=== PATIENT | female | born 1945 | race Two or more races ===

== ENCOUNTER 2021-06-10 10:26 | Outpatient (CLI) | payer OTHER | END 2021-06-10 10:31 | disposition home or self-care (01) | LOC: RAD 10:26 | PROVIDERS: ATTEND General Practice | DX: J44.9 Chronic obstructive pulmonary disease, unspecified (principal); D48.61 Neoplasm of uncertain behavior of right breast; D48.62 Neoplasm of uncertain behavior of left breast; I70.0 Atherosclerosis of aorta; I51.7 Cardiomegaly ==

== ENCOUNTER 2024-12-25 09:06 | Outpatient (CLI) | payer OTHER | END 2024-12-25 09:10 | disposition home or self-care (01) | LOC: SONOGRAMA 09:06 | PROVIDERS: ATTEND Family Medicine | DX: R22.42 Localized swelling, mass and lump, left lower limb (principal) ==